=== PATIENT | male | born 1940 | race African-American/Black ===

== ENCOUNTER 2020-10-15 06:09 | Emergency (ER) | payer MEDICAID ==
[~2020-10-15] VITALS: Ht 185.4 cm; Wt 74.6 kg
--- NOTE | 2020-10-15 06:20 | NUR ---
BIB EMS FROM [facility], PT STOOD UP TO GO SMOKE AND BECAME DIZZY BUT DID NOT FALL. PT DENIES RECENT TRAUMA, DENIES ETOH/ DRUG USE. PT CALM COOPERATIVE CONNECTED TO ALL MONITORING. VSS.
--- NOTE | 2020-10-15 06:29 | NUR ---
ERP TO BEDSIDE FOR EVAL.
[2020-10-15] MEDS ORDERED: SODIUM CHLORIDE FLUSH 10ML SYR IVF ONE (06:30)
--- NOTE | 2020-10-15 06:56 | NUR ---
REPORT TO QUIANA, TRANSFER OF CARE COMPLETE AT THIS TIME, ALL QUESTIONS ADDRESSED.
--- NOTE | 2020-10-15 07:00 | NUR ---
RECEIVED REPORT FROM PHYLLIS ROCHE.
[2020-10-15 07:14] LABS: BASOPHILS % (AUTO) 1 % (0-1); EOSINOPHILS % (AUTO) 1 % (1-7); LYMPHOCYTES % (AUTO) 29 % (22-44); MEAN CORPUSCULAR HEMOGLOBIN 22.7 pg (27.5-34.5); MEAN CORPUSCULAR HGB CONC 32.5 g/dL (33.2-36.2); MEAN PLATELET VOLUME 9.8 fL (7.4-10.4); MONOCYTES % (AUTO) 6 % (2-9); NEUTROPHILS % (AUTO) 64 % (42-75); PLATELET COUNT 168 x10^3/uL (130-400); RED BLOOD COUNT 5.55 x10^6/uL (4.38-5.82); RED CELL DISTRIBUTION WIDTH 15.8 % (9.4-14.8)
--- NOTE | 2020-10-15 07:20 | NUR ---
ORTHOSTATICS LYING BP 129/58 HR 73 SITTING 148/77 HR 73 STANDING 143/81 HR 84
[2020-10-15 07:25] LABS: ALBUMIN 3.4 g/dL (3.4-5.0); ANION GAP 4 mmol/L (5-15); CHLORIDE 106 mmol/L (98-107)
[2020-10-15 07:39] LABS: MICROSCOPIC NOT IND
[2020-10-15 07:48] LABS: ALANINE AMINOTRANSFERASE 18 U/L (12-78); ALKALINE PHOSPHATASE 58 U/L (45-117); BILIRUBIN,TOTAL 0.5 mg/dL (0.2-1.0); CREATININE 0.93 mg/dL (0.7-1.3); TOTAL PROTEIN 6.8 g/dL (6.4-8.2); TROPONIN I < 0.015 ng/mL (0.000-0.045)
[2020-10-15 09:02] VITALS: BP 156/82
--- NOTE | 2020-10-15 09:02 | NUR ---
Patient/Caregiver given discharge instructions and they have confirmed that they understand the instructions. Patient ambulatory with steady gait. NAD, all questions answered appropriately, denies additional needs at this time. No personal belongings left in room after discharge.
== END 2020-10-15 09:04 | disposition home or self-care (01) ==
LOC: ED 06:30
DX: R42 Dizziness and giddiness (principal); R07.89 Other chest pain; I10 Essential (primary) hypertension; E11.9 Type 2 diabetes mellitus without complications; R94.31 Abnormal electrocardiogram [ECG] [EKG]
CPT/HCPCS: 36415; 71045; 80053; 81003; 84484; 85025; 93005; 99285